=== PATIENT | male | born 1995 | race Hispanic/Latino ===

== ENCOUNTER 2025-05-29 22:30 | Emergency (ER) | payer MEDICAID, OTHER ==
[~2025-05-29] VITALS: Ht 180.3 cm; Wt 93.9 kg
[2025-05-29 22:44] VITALS: TEMP 96.7
--- NOTE | 2025-05-29 22:55 | ERN ---
General Chief Complaint: Abdominal Pain Stated Complaint: C/O RUQ PAIN W/ ITCHING TO BODY AND THROAT Time Seen by MD: 22:33 Source: patient History of Present Illness Initial Comments Patient is a 30-year-old male coming in complaining abdominal pain. Per patient he started having abdominal pain earlier in the day then shortly after that started having itchy in his in his body. Quantifies the pain at 10/10 found in the epigastric region. Allergies: Coded Allergies: No Known Allergies (Unverified Allergy, Unknown, 05/29/25) Past Medical History Past Medical History: No Pertinent History Past Surgical History: None ROS Dictation CONSTITUTIONAL: No chills, no fever, no weakness, no diaphoresis, no malaise. HEAD/FACE: No signs of trauma. EENT: No eye pain, no blurred vision, no tearing, no double vision, no ear pain, no ear discharge, no nose pain, no nasal congestion, no throat pain, no throat swelling, no mouth pain. RESPIRATORY: No cough, no orthopnea, no SOB, no stridor, no wheezing. CARDIOVASCULAR: No chest pain, no edema, no palpitations, no syncope. GASTROINTESTINAL/ABDOMINAL: abdominal pain, no constipation, no diarrhea, no nausea, no vomiting. GENITOURINARY: No abnormal discharge, no dysuria, no frequent urination, no hematuria. No complaints of pain in the genitals. MUSCULOSKELETAL: No back pain, no gout, no joint pain, no joint swelling, no muscle pain, no muscle stiffness, no neck pain. INTEGUMENTARY: No change in color, no change in hair/nails, no dryness, no lesion, no lumps, no rash. NEUROLOGICAL/PSYCH: No anxiety, not depressed, no emotional problem, no headache, no numbness, no pre-existing deficit, no history of seizures, no tremors, no weakness. HEMATOLOGIC/LYMPHATIC: Not anemic, no history of blood clots, no apparent bleeding, no bruising, glands not swollen. All Systems Negative, Except as Noted. Physical Exam Physical Exam Dictation VITAL SIGNS: Reviewed. GENERAL APPEARANCE: Alert, oriented x3, no acute distress, obese. HEAD AND FACE: Non-traumatic. EYES: PERRL, pink conjunctivas, eyelid no trauma, anterior chamber clear. EARS: Pinnas intact and no signs of trauma or erythema. Ear canals clear and no discharge. TMs no erythema. NOSE: No discharge, no bleeding. OROPHARYNX: Mouth normal, teeth no caries, tongue pink. Pharynx clear, no erythema. Tonsils no exudates, no abscesses noted. Mucous membrane moist. NECK: Supple, non-tender, no thyromegaly, no masses, no JVD, no bruits. BREAST: Deferred. CHEST: No tenderness, no crepitus, no paradoxical movement, no retractions. LUNGS: Clear, well-ventilated, symmetric, no rales, no wheezing, no rhonchi, no stridor, good breath sounds bilaterally. HEART: Regular rate, regular rhythm, no murmur, no gallops. VASCULAR: No peripheral edema. ABDOMEN: Soft, positive bowel sounds, nondistended, no guarding, epigastric tenderness on palpation, no rebound, no masses no hepatomegaly, no splenomegaly, no Smith's sign, no hernias. RECTAL: Deferred. GENITAL: Deferred. NEUROLOGICAL: Normal speech, gross motor function intact, gross sensory function intact. MUSCULOSKELETAL: Neck nontender, full range of motion, back nontender, full range of motion. EXTREMITIES: Nontender, full range of motion. SKIN: Color pink, dry, no turgor, no rash, no lacerations, no abrasions, no contusions. LYMPHATICS: Deferred. Results Laboratory and Microbiology Lab and Micro Result Laboratory Tests Test 05/29/25 23:03 05/29/25 23:11 White Blood Count 8.4 K/uL (4.8-10.8) Red Blood Count 6.58 MIL/uL (4.50-6.20) H Hemoglobin 12.3 g/dL (14.0-18.0) L Hematocrit 39.9 % (42-54) L Mean Corpuscular Volume 60.6 fL (79-99) L Mean Corpuscular Hemoglobin 18.7 pg (27.0-33.0) L Mean Corpuscular Hemoglobin Concent 30.8 g/dL (32.0-36.0) L Red Cell Distribution Width 18.0 % (11.0-15.5) H Platelet Count 266 K/uL (130-400) Mean Platelet Volume 9.7 fL (7.5-10.5) Immature Granulocyte % (Auto) 0.4 % (0-1) Neutrophils (%) (Auto) 54.0 % (40.0-77.0) Lymphocytes (%) (Auto) 33.3 % (21.0-51.0) Monocytes (%) (Auto) 10.2 % (3.0-13.0) Eosinophils (%) (Auto) 1.7 % (0.0-8.0) Basophils (%) (Auto) 0.4 % (0.0-5.0) Neutrophils # (Auto) 4.6 K/uL (1.8-7.7) Lymphocytes # (Auto) 2.8 K/uL (1.0-4.8) Monocytes # (Auto) 0.9 K/uL (0.1-1.0) Eosinophils # (Auto) 0.14 K/uL (0.00-0.70) Basophils # (Auto) 0.03 K/uL (0.00-0.20) Absolute Immature Granulocyte (auto 0.03 K/uL (0-1) Nucleated Red Blood Cells 0.5 % (0.0-0.19) H Red Blood Cell Morphology See comments Sodium Level 138 mmol/L (136-145) Potassium Level 3.7 mmol/L (3.5-5.1) Chloride Level 102 mmol/L (101-111) Carbon Dioxide Level 30 mmol/L (21-32) Blood Urea Nitrogen 18 mg/dL (7-18) Creatinine 1.0 mg/dL (0.5-1.3) Glomerular Filtration Rate Calc 104 mL/min (>90) Random Glucose 116 mg/dL (70-105) H Total Calcium 8.8 mg/dL (8.5-10.1) Total Bilirubin 0.9 mg/dL (0.2-1.0) Aspartate Amino Transf (AST/SGOT) 25 U/L (10-37) Alanine Aminotransferase (ALT/SGPT) 46 U/L (12-78) Alkaline Phosphatase 77 U/L (50-136) Total Creatine Kinase 149 U/L (21-232) Troponin I High Sensitivity 21 ng/L (4-75) Total Protein 7.2 g/dL (6.0-8.3) Albumin 4.1 g/dL (3.5-5.0) Lipase 39 U/L (16-77) Urine Color COLORLESS (YELLOW) Urine Appearance CLEAR (CLEAR) Urine pH 6.0 (5.0-8.0) Urine Specific [place] 1.008 (1.001-1.031) Urine Protein NEGATIVE mg/dL (NEGATIVE) Urine Glucose (UA) NEGATIVE mg/dL (NEGATIVE) Urine Ketones NEGATIVE mg/dL (NEGATIVE) Urine Occult Blood NEGATIVE (NEGATIVE) Urine Nitrate NEGATIVE (NEGATIVE) Urine Bilirubin NEGATIVE mg/dL (NEGATIVE) Urine Urobilinogen 0.2 mg/dL (0.2-1.0) Urine Leukocyte Esterase NEGATIVE Ronni/uL Labs Reviewed?: Yes EKG/XRAY/US/CT/MRI EKG Comment 05/29/2025 time 10:49 p.m. Ventricular rate 78 Sinus rhythm [place] [address] wave elevation or depression MDM MDM: Differential diagnosis: Gastritis, GERD, pancreatitis, Rationale: Tests considered and ordered secondary to shared decision making include: labs, ECG and radiology Previous outside records reviewed: Old ER visits. Risk of complication and/or morbidity or mortality of patient management: None Medications-Per medication reconciliation Need for hospitalization: Patient does not meet criteria for hospitalization. Need for emergency major/minor surgery: No Patient is a 80-year-old gentleman coming in complaining of abdominal discomfort. Long with this he states he has been having allergic reaction in his has been addressed by his PCP. Laboratory workup within normal limits.. Patient received a GI cocktail states he feels better will be discharged in stable condition with a diagnosis of gastritis slurred. ED Course Orders Procedure Category Date Status Time Cbc With Differential LAB 05/29/25 Complete 22:40 Comprehensive LAB 05/29/25 Complete Metabolic Panel 22:40 Troponin I High LAB 05/29/25 Complete Sensitivity 22:40 Urinalysis Profile LAB 05/29/25 Complete 22:40 12 Lead Ekg Tracing- EKG 05/29/25 Complete Technical 22:40 0.9%Nacl 1000ml (Ns PHA 05/29/25 Complete 1000ml) 23:00 Pantoprazole 40mg Inj PHA 05/29/25 Complete (Protonix 40mg Inj 23:00 Creatine Kinase, Total LAB 05/29/25 Complete 22:40 Lipase LAB 05/29/25 Complete 22:40 Lidocaine Hcl 2% PHA 05/30/25 In Process Viscous (Lidocaine Hcl 00:30 Mag/Alum/Simeth 30ml PHA 05/30/25 In Process (Maalox Plus 30ml) 00:30 Current Medications Medications (Trade) Dose Ordered Sig/Radhika Route PRN Reason Start Time Stop Time Status Last Admin Dose Admin Al Hydroxide/Mg Hydroxide (MAALox PLUS 30ML) 30 ml ONCE ONCE PO 05/30/25 00:30 05/30/25 00:31 05/30/25 00:16 Lidocaine HCl (Lidocaine HCl 2% Viscous) 10 ml ONCE ONCE PO 05/30/25 00:30 05/30/25 00:31 05/30/25 00:16 Pantoprazole Sodium (PROTonix 40MG INJ) 40 mg ONCE ONCE IVP 05/29/25 23:00 05/29/25 23:01 DC 05/29/25 23:09 Sodium Chloride 1,000 ml @ 0 mls/hr ONCE ONCE IV 05/29/25 23:00 05/29/25 23:01 DC 05/29/25 23:09 Vital Signs Date Time Temp Pulse Resp B/P (MAP) Pulse Ox O2 Delivery O2 Flow Rate FiO2 05/29/25 22:44 96.6 84 20 127/49 98 Room Air* 0 21 05/29/25 22:34 96.6 84 20 127/49 98 Room Air DX & DISP Disposition: Discharge Departure Impression: Primary Impression: Gastritis Additional Impression: GERD (gastroesophageal reflux disease) Condition: Stable Scripts Pantoprazole Sodium (Protonix) 40 Mg Ectab 1 TAB PO DAILY for 30 Days, #30 TAB 0 Refills Prov: YUMIKO HERMAN MD 05/30/25 Additional Instructions: FOLLOW-UP WITH PRIMARY CARE PROVIDER IN 1 TO 2 DAYS. TAKE MEDICATIONS DIRECTED HERE IN THE EMERGENCY ROOM. OKAY TO CONTINUE HOME MEDICATIONS UNLESS OTHERWISE DISCUSSED DURING YOUR VISIT IN THE EMERGENCY ROOM TODAY. RETURN TO YOUR NEAREST EMERGENCY ROOM IF SYMPTOMS WORSEN OR IF THERE IS NO IMPROVEMENT. CALL 911 IF YOU NEED IMMEDIATE ASSISTANCE. TAKE TYLENOL [id number] NEEDED AND IF NO CONTRAINDICATIONS ARE PRESENT. INCREASE ORAL HYDRATION. A WOUND CULTURE OR URINE CULTURE WAS ORDERED HERE IN THE EMERGENCY ROOM DEPARTMENT PLEASE FOLLOW-UP WITH PRIMARY CARE PROVIDER AND ADVISE THEM TO GET REPORTS FROM OUR FACILITY. IF YOU HAD ANY DAMON WRAP/SPLINTS THAT WERE APPLIED HERE, PLEASE DO NOT REMOVE THEM UNTIL YOU SEE YOUR PRIMARY CARE OR SPECIALTY. Referrals: Referrals: SELF,REFERRAL (PCP) LILLY CANTRELL MD Time of Disposition: 00:24 YUMIKO HERMAN MD May 29, 2025 22:54
--- NOTE | 2025-05-29 22:56 | EKG ---
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
[2025-05-29] MEDS: 0.9%NACL 1000ML 1,000 ML IV ONE (23:09)
[2025-05-29 23:12] LABS: IMMATURE GRANULOCYTE ABSOLUTE 0.03 K/uL (0-1); NUCLEATED RED BLOOD CELLS 0.5 % (0.0-0.19); PLATELET COUNT (AUTO) 266 K/uL (130-400); RED BLOOD CELL COUNT(AUTO) 6.58 MIL/uL (4.50-6.20); RED CELL DISTRIBUTION WIDTH 18.0 % (11.0-15.5); WHITE BLOOD COUNT (AUTO) 8.4 K/uL (4.8-10.8)
[2025-05-29 23:19] LABS: APPEARANCE,URINE CLEAR (CLEAR); GLUCOSE, URINE (UA) NEGATIVE (NEGATIVE); LEUKOCYTE ESTERASE ,URINE NEGATIVE Leu/uL (NEGATIVE); NITRATE,URINE NEGATIVE (NEGATIVE); OCCULT BLOOD,URINE NEGATIVE (NEGATIVE)
[2025-05-29 23:20] LABS: ADD UA MICROSCOPIC NO
[2025-05-29 23:34] LABS: ASPARTATE AMINOTRANSFERASE 25.0 U/L (10-37); CREATINE KINASE, TOTAL 149.0 U/L (21-232); CREATININE 1.0 mg/dL (0.5-1.3); GLOMERULAR FILTR. RATE CALC 104.0 mL/min (>90); GLUCOSE,RANDOM 116.0 mg/dL (70-105); SODIUM SERUM 138.0 mmol/L (136-145); TOTAL PROTEIN, SERUM 7.2 g/dL (6.0-8.3); UREA NITROGEN, BLOOD 18.0 mg/dL (7-18)
[2025-05-30] MEDS: MAG/ALUM/SIMETH 30 ML UDCUP PO ONE (00:16)
[2025-05-30] MEDS: LIDOCAINE HCL 2% VISCOUS 15 ML UDCUP PO ONE (00:16)
[2025-05-30] MEDS ORDERED: PANT40TA55 PO (00:25)
[2025-05-30 00:39] VITALS: BP 129/62; PULSE 68; RESP 16; O2SAT 99
== END 2025-05-30 00:45 | disposition home or self-care (01) ==
LOC: EDH 22:30
DX: K29.70 Gastritis, unspecified, without bleeding (principal); K21.9 Gastro-esophageal reflux disease without esophagitis
CPT/HCPCS: 99284; 96374; 96361; 82550; 84484; 80053; 83690; 85025; 81003; 36415; 93005; J2470

== ENCOUNTER 2025-06-19 22:33 | Emergency (ER) | payer OTHER ==
[~2025-06-19] VITALS: Ht 180.3 cm; Wt 94.8 kg
[~2025-06-19 22:33] MED LIST: PANT40TA55 PO
--- NOTE | 2025-06-19 23:19 | ERN ---
ED Note History of Present Illness Stated Complaint: C/O REDNESS,ITCHING,HIVES Chief Complaint: Allergic Reaction Time Seen by MD: 23:02 Dictation: 30-YEAR-OLD MALE PRESENTS TO ER COMPLAINTS OF AN ALLERGIC REACTION. SWELLING TO EYES HIVES TO NECK AND CHEST AREA. STATES THIS HAS HAPPENED BEFORE BUT NOT THIS SEVERE. UNKNOWN WHAT HE IS ALLERGIC TO Allergies: Coded Allergies: No Known Allergies (Unverified Allergy, Unknown, 05/29/25) Home Meds Active Scripts Pantoprazole Sodium (Protonix) 40 Mg Ectab, 1 TAB PO DAILY for 30 Days, #30 TAB 0 Refills Prov:YUMIKO HERMAN MD 05/30/25 Past Medical History Past Medical History: No Pertinent History Surgical History: None Review of System Dictation CONSTITUTIONAL: NEGATIVE FOR FEVER,CHILLS, AND WEIGHT LOSS EYES: NEGATIVE FOR INJURY, PAIN,REDNESS, AND DISCHARGE. POSITIVE FOR SWELLING AROUND EYES ENT: NEGATIVE FOR INJURY,PAIN OR SWELLING CARDIOVASCULAR: NEGATIVE FOR CHEST PAIN, PALPITATIONS, AND EDEMA RESPIRATORY: NEGATIVE FOR SHORTNESS OF BREATH, COUGH, WHEEZING, AND PLEURITIC CHEST PAIN ABDOMEN/GI: NEGATIVE FOR ABDOMINAL PAIN, NAUSEA, VOMITING AND DIARRHEA. BACK: NEGATIVE FOR PAIN OR INJURY : NEGATIVE FOR INJURY, BLEEDING AND DISCHARGE MS/EXTREMITY: NEGATIVE FOR INJURY AND DEFORMITY SKIN: NEGATIVE FOR RASH, AND DISCOLORATION NEURO: NEGATIVE FOR HEADACHE, WEAKNESS, NUMBNESS, TINGLING, AND SEIZURE PSYCH: NEGATIVE FOR SUICIDE IDEATION, HOMICIDAL IDEATION, AND HALLUCINATIONS ALLERGY/IMMUNOLOGY: POSITIVE FOR HIVES ALL SYSTEMS NEGATIVE, EXCEPT NOTED ABOVE. 13 POINT REVIEW OF SYSTEMS ASSESSED AND ALL NEGATIVE EXCEPT FOR ABOVE. Initial Vital Sign VS Vital Signs Date Time Temp Pulse Resp B/P (MAP) Pulse Ox O2 Delivery O2 Flow Rate FiO2 06/19/25 22:34 97.3 83 20 145/53 99 Room Air Physical Exam Dictation GENERAL: AWAKE, ALERT, NAD HEAD/FACE: NORMOCEPHALIC, ATRAUMATIC EYES: PERRL, EOMI, VISION AT BASELINE. HER PERIPHERAL EDEMA NOTED TO BOTH EYES ENT: ORAL CAVITY CLEAR, TMS CLEAR, NO SIGNS OF INFECTION NECK: TRACHEA MIDLINE, SUPPLE, NO NUCHAL RIGIDITY CARDIOVASCULAR: RRR, NORMAL S1/S2, NO MRGS, NO JVD RESPIRATORY: CTAB, NO RESPIRATORY DISTRESS, NO RALES OR WHEEZES ABDOMEN: SOFT, NON-TENDER, NON-DISTENDED, NORMAL BOWEL SOUNDS, NO GUARDING OR REBOUND. SKIN: WARM, DRY, NORMAL TURGOR, HIVES NOTED TO NECK AND CHEST AREA MS/EXTREMITY: PULSES EQUAL, NO CYANOSIS, NEUROVASCULAR INTACT, FROM NEURO: COAX4, GCS 15, STRENGTH 5/5, CN 2-12 INTACT, NORMAL CEREBELLAR EXAM, NORMAL GAIT, PSYCH: NORMAL BEHAVIOR, MOOD, AND AFFECT NORMAL ED Course ED Course Orders Procedure Category Date Status Time Diphenhydramine Hcl PHA 06/19/25 Complete (Benadryl Inj) 23:30 Famotidine 20mg Vial PHA 06/19/25 Complete (Pepcid 20mg Vial) 23:30 Dexamethasone 4mg/Ml PHA 06/19/25 Complete 1ml Vial (Dexametha 23:30 Current Medications Medications (Trade) Dose Ordered Sig/Radhika Route PRN Reason Start Time Stop Time Status Last Admin Dose Admin Dexamethasone Sodium Phosphate (dexaMETHasone 4MG/ML 1ML VIAL) 6 mg ONCE ONCE IVP 06/19/25 23:30 06/19/25 23:31 DC 06/19/25 23:28 Diphenhydramine HCl (BENAdryl INJ) 25 mg ONCE ONCE IV 06/19/25 23:30 06/19/25 23:31 DC 06/19/25 23:27 Famotidine (Pepcid 20mg Vial) 20 mg ONCE ONCE IV 06/19/25 23:30 06/19/25 23:31 DC 06/19/25 23:27 Vital Signs Date Time Temp Pulse Resp B/P (MAP) Pulse Ox O2 Delivery O2 Flow Rate FiO2 06/19/25 22:34 97.3 83 20 145/53 99 Room Air Medical Decision Making MDM MDM: DIFFERENTIAL DIAGNOSIS: ALLERGIC REACTION, HIVES, URTICARIA RATIONALE: TESTS CONSIDERED AND ORDERED SECONDARY TO SHARED DECISION MAKING INCLUDE: LABS, ECG AND RADIOLOGY PREVIOUS OUTSIDE RECORDS REVIEWED: OLD ER VISITS. RISK OF COMPLICATION AND/OR MORBIDITY OR MORTALITY OF PATIENT MANAGEMENT: NONE MEDICATIONS-PER MEDICATION RECONCILIATION NEED FOR HOSPITALIZATION: PATIENT DOES NOT MEET CRITERIA FOR HOSPITALIZATION. NEED FOR EMERGENCY MAJOR/MINOR SURGERY: NO THERE ARE NO SOCIAL CONCERNS WITH THIS PATIENT. PRESCRIPTION DRUG MANAGEMENT PRESCRIPTIONS WILL INCLUDE SYMPTOMATIC CARE PATIENT'S PRIOR EXTERNAL MEDICAL RECORDS FROM OTHER ER VISITS WERE REVIEWED BY ME INDICATED. PRIOR TESTING AND RESULTS FROM PREVIOUS VISITS WERE REVIEWED. PRIOR TESTS WERE TAKEN INTO ACCOUNT WITH MEDICAL DECISION MAKING AND RESOURCE UTILIZATION, INDEPENDENT HISTORIAN/HISTORIANS WERE USED TO OBTAIN COMPLETE MEDICAL HISTORY. I INDEPENDENTLY INTERPRETED THE TEST THAT WERE PERFORMED, RESULTS WERE REVIEWED BY ME AND CONSIDERED FINDINGS ON RADIOLOGY IF ORDERED. PATIENT'S SYMPTOMS IMPROVED WITH MEDICATION. PATIENT ADVISED TO TAKE MED ICATIONS FOR THE NEXT COUPLE OF DAYS TO PREVENT ALLERGY REACTION TO RETURNED. PATIENT ALSO STATES HE HAS AN EPIPEN AT HOME AND DOES NOT NEED A PRESCRIPTION FOR IT DX & DISP Disposition: Discharge Departure Impression: Primary Impression: Allergic reaction Additional Impression: Hives Condition: Stable Scripts Prednisone (Prednisone) 20 Mg Tablet 1 TAB PO DAILY for 5 Days, #5 TAB 0 Refills Prov: LILLIAN CERVANTES NP 06/20/25 Famotidine (Pepcid) 20 Mg Tablet 20 MG PO DAILY, #5 TAB Prov: LILLIAN CERVANTES NP 06/20/25 Diphenhydramine HCl (Diphenhydramine HCl) 25 Mg Capsule 25 MG PO Q6HPRN for ALLERGY, #10 CAP Prov: LILLIAN CERVANTES NP 06/20/25 Additional Instructions: MEDICATIONS NEEDED FOR ALLERGIC REACTION. FOLLOW-UP WITH YOUR PCP IN 24-72 HOURS AND IN THE EVENT IF SYMPTOMS WORSEN OR AN EMERGENCY OVERNIGHT REPORT TO THE ED IMMEDIATELY Referrals: DIANE DOUGLASS MD (PCP) LILLIAN CERVANTES NP Jun 19, 2025 23:19
[2025-06-19] MEDS: FAMOTIDINE 20MG VIAL IV ONE (23:27)
[2025-06-20] MEDS ORDERED: PRED20TA3 PO (00:18)
[2025-06-20] MEDS ORDERED: DIPH25CA53 PO (00:18)
[2025-06-20] MEDS ORDERED: FAMO-136 PO (00:18)
[2025-06-20 00:33] VITALS: BP 132/74; PULSE 79; RESP 18; TEMP 98.3; O2SAT 98
== END 2025-06-20 00:34 | disposition home or self-care (01) ==
LOC: EDH 22:33
DX: T78.40XA Allergy, unspecified, initial encounter (principal); L50.9 Urticaria, unspecified; Z79.899 Other long term (current) drug therapy; X58.XXXA Exposure to other specified factors, initial encounter
CPT/HCPCS: 99284; 96374; 96375; J1100; J1200; J1308